=== PATIENT | female | born 1990 | race American Indian/Alaskan Native ===

== ENCOUNTER 2020-05-14 15:42 | Emergency (ER) | payer OTHER ==
[2020-05-14] MEDS ORDERED: IBUPROFEN 600 MG TAB PO ONE (15:52)
--- NOTE | 2020-05-14 16:44 | XRay Report ---
LEFT ANKLE 4 VIEW(S) INDICATION / CLINICAL INFORMATION: Left ankle pain after injury COMPARISON: None available. FINDINGS: BONES / JOINT(S): No acute fracture or subluxation heterotopic ossification along inferolateral aspec t of fibula likely from remote ankle sprain. Old tiny avulsion fracture along the inferior aspect med ial malleolus. Moderate lateral ankle soft tissue swelling. SOFT TISSUES: No significant abnormality. ADDITIONAL FINDINGS: None. Signer Name: Edgar Chambers MD Signed: 05/14/2020 4:40 PM Workstation Name: [id number]
--- NOTE | 2020-05-14 19:22 | Emergency Department Report ---
ED General Adult HPI - General Chief complaint: Extremity Injury, Lower Stated complaint: LT ANKLE PAIN Time Seen by Provider: 05/14/20 18:23 Source: patient Mode of arrival: Wheelchair Limitations: No Limitations - History of Present Illness Initial comments: 29-year-old -[place] female patient presents with complaints of left ankle pain and swelling after she twisted her ankle playing basketball today. She rates her current pain as a 7/10 in severity and states it worsens with ambulation and movement of the ankle. She denies any loss of sensation to her foot. -: Sudden Quality: constant - Related Data Previous Rx's Medication Instructions Recorded Last Taken Type Ibuprofen [Motrin 800 MG tab] 800 mg PO Q8HR PRN #21 tablet 05/14/20 Unknown Rx Allergies Allergy/AdvReac Type Severity Reaction Status Date / Time No Known Allergies Allergy Unverified 05/14/20 15:48 ED Review of Systems ROS: Stated complaint: LT ANKLE PAIN Other details as noted in HPI Constitutional: denies: chills, fever Musculoskeletal: joint swelling, arthralgia Skin: denies: lesions Neurological: abnormal gait. denies: numbness, paresthesias Hematological/Lymphatic: denies: easy bruising ED Past Medical Hx - Past Medical History Previous Medical History?: No - Medications Home Medications: Home Medications Medication Instructions Recorded Confirmed Last Taken Type Ibuprofen [Motrin 800 MG tab] 800 mg PO Q8HR PRN #21 tablet 05/14/20 Unknown Rx ED Physical Exam - General Limitations: No Limitations General appearance: alert, in no apparent distress - Head Head exam: Present: atraumatic, normocephalic - Eye Eye exam: Present: normal appearance. Absent: scleral icterus - Respiratory Respiratory exam: Absent: respiratory distress - Expanded Lower Extremity Exam Left Ankle exam: Present: tenderness (Tenderness to palpation noted of the medial and lateral malleolus), swelling (Worse on lateral portion of ankle). Absent: full ROM (Decreased secondary to pain), abrasion, laceration, ecchymosis, dislocation, erythema Neuro vascular tendon exam: Present: no vascular compromise. Absent: pulse deficit, sensory deficit Gait: Positive: antalgic - Back Exam Back exam: Present: full ROM - Neurological Exam Neurological exam: Present: alert, oriented X3 - Psychiatric Psychiatric exam: Present: normal affect, normal mood - Skin Skin exam: Present: warm, dry, intact, normal color. Absent: rash ED Course Vital Signs 05/14/20 15:48 Temperature 98.3 F Pulse Rate 91 H Respiratory 16 Rate Blood Pressure 130/79 [Right] O2 Sat by Pulse 100 Oximetry ED Medical Decision Making - Radiology Data Radiology results: report reviewed LEFT ANKLE 4 VIEW(S) INDICATION / CLINICAL INFORMATION: Left ankle pain after injury COMPARISON: None available. FINDINGS: BONES / JOINT(S): No acute fracture or subluxation heterotopic ossification along inferolateral aspect of fibula likely from remote ankle sprain. Old tiny avulsion fracture along the inferior aspect medial malleolus. Moderate lateral ankle soft tissue swelling. SOFT TISSUES: No significant abnormality. ADDITIONAL FINDINGS: None. - Medical Decision Making Patient here with left ankle pain after a basketball injury today. Tenderness to palpation noted to the medial and lateral malleoli with moderate swelling. No ecchymosis noted. X-ray is negative for any acute bony abnormalities. Patient placed in a Dontae wrap and provided with crutches. Discussed rice method in NSAIDs for treatment. Patient instructed to follow-up with orthopedics. Strict return precautions were discussed in detail with patient who verbalizes understanding she is well-appearing and stable for discharge home Critical care attestation.: If time is entered above; I have spent that time in minutes in the direct care of this critically ill patient, excluding procedure time. ED Disposition Clinical Impression: Left ankle sprain Qualifiers: Encounter type: initial encounter Involved ligament of ankle: other ligament Qualified Code(s): S93.492A - Sprain of other ligament of left ankle, initial encounter Disposition: TO HOME OR SELFCARE Is pt being admited?: No Condition: Stable Instructions: Ankle Sprain (ED) Prescriptions: Ibuprofen [Motrin 800 MG tab] 800 mg PO Q8HR PRN #21 tablet PRN Reason: pain Referrals: KARLENE CARR MD [Staff Physician] - 3-5 Days
[2020-05-14] MEDS ORDERED: HYDROcodone/ACETAMINOPHEN 5-325 MG TAB PO ONE (20:29)
[2020-05-14] MEDS ORDERED: IBUPROFEN 800 MG TAB ONE (20:45)
[2020-05-14] MEDS ORDERED: IBUPROFEN 800 MG TAB PO ONE (20:46)
[2020-05-14 21:06] VITALS: BP 122/87
== END 2020-05-14 21:05 | disposition home or self-care (01) ==
LOC: ED 15:42
DX: S93.492A Sprain of other ligament of left ankle, initial encounter (principal); X58.XXXA Exposure to other specified factors, initial encounter; Y93.89 Activity, other specified; Y92.89 Other specified places as the place of occurrence of the external cause; Y99.8 Other external cause status
CPT/HCPCS: 99283